=== PATIENT | male | born 1950 | race Caucasian/White ===

== ENCOUNTER 2025-01-04 12:27 | Outpatient (CLI) | payer MEDICARE, SELFPAY ==
--- OUTSIDE RECORDS SUMMARY | 2025-01-04 12:45 | XMS_ITS | Clinical Summary ---
Author Organization [facility] Address [address] [place] [address] Care Team Providers Care Slurry Blender Name Role Phone Unavailable Primary Care Provider Unavailabl e Source Comments [facility] [employer],non-owned Affiliates and Associated Physician Practices is amultiple site organization consisting of ambulatory clinics and hospital sitesin [place], [place], [place] and [place]. This disclosure is being madepursuant to the Care Everywhere program and may not contain all information available regarding this patient. Last updated 17.[facility] [employer] Social History Tobacco Use Types Packs/Day Years Used Date Smoking Tobacco: Never Assessed Sex and Gender Information Value Date Recorded Sex Assigned at Not on file Legal Sex Male 2:21 PM CDT Gender Identity Not on file Sexual Orientation Not on file Plan of Treatment Health Maintenance Due Date Last Done Comments MEDICARE AWV 12 MONTHS 1950 HEPATITIS C SCREENING 03/13/1966 DTAP/TDAP/TD VACCINES (1 - Tdap) 1967 PNEUMOCOCCAL VACCINE 50+ (1 of 1 - PCV) 1998 ZOSTER VACCINE (1 of 2) 1998 Respiratory Syncytial Virus (RSV) Vaccine Pt: or over 60 yrs (1 - 1-dose 75+ series) 2023 DEPRESSION SCREENING 04/07/2024 COVID-19 VACCINE (1 - 2023-2 5 season) 2024 INFLUENZA VACCINE (#1) 2024 HEPATITIS B VACCINE Aged Out No longe r eligible based on patient's age to complete this topic HIB VACCINE Aged Out No longer eligi ble based on patient's age to complete this topic HPV VACCINE Aged Out No longer eligi ble based on patient's age to complete this topic MENINGOCOCCAL (Group B) VACC INE SHARED DECISION-MAKING Aged Out No longer eligibl e based on patient's age to complete this topic MENINGOCOCCAL GROUPS A/C/Y/W VACCINE Aged Out No longer eligible b ased on patient's age to complete this topic [facility] [employer] DEPT [address] [place] [phone] MEDICARE
--- OUTSIDE RECORDS SUMMARY | 2025-01-04 12:45 | XMS_ITS | Encounter Summary ---
Author Organization [facility] Address [address] [place] [address] Care Team Providers Care Ship'S Officer Name Role Phone Unavailable Primary Care Provider Unavailabl e Encounter Details Date Type Department Care Team (Late st Contact Info) Description 09/29/2023 Lab Requisition [facility] - DermPath Lab [address] [place] [address] Nishant Villarreal MD [facility] DERMATOLOGY [address] [place] [phone] Neoplasm of uncertain behavior of skin Social History Tobacco Use Types Packs/Day Years Used Date Smoking Tobacco: Never Assessed Sex and Gender Information Value Date Recorded Sex Assigned at Not on file Legal Sex Male 2:21 PM CDT Gender Identity Not on file Sexual Orientation Not on file documented as of this encounter Plan of Treatment Not on file documented as of this encounter Procedures Procedure Name Priority Date/Time Associated Diagnosis Comments DERMATOPATHOLOGY Routine 09/29/2023 3:33 AM CDT Neoplasm of uncertain behavior of skin documented in this encounter Results * DERMATOPATHOLOGY (09/29/2023 3:33 AM CDT) Case Report Dermatopathology Report Case: [id number] Authorizing Provider: Nishant Villarreal MD Collected: 09/29/2023 03:33 AM Ordering Location: [facility] Physician [facility] - Received: 09/30/2023 01:07 PM DermPath Lab Pathologist: Holly Rubalcava MD Specimen: Skin, right superior buccal cheek 4 5:05 PM CDT DERMATOPATHOLOGY LABORATORY Final Diagnosis Specimen A. 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 The specimen consists of a shave biopsy measuring 9x7x2 mm. Jar 0. 4 5:05 PM CDT DERMATOPATHOLOGY LABORATORY Microscopic Description Specimen A. SKIN, right superior buccal cheek: There are prominent sebaceous gland lobules surrounding a dilated hair follicle. 4 5:05 PM CDT DERMATOPATHOLOGY LABORATORY Disclaimer An external and internal positive and negative controls are appropriate for the histochemical, immunohistochemical and immunofluorescence stain(s) in this case (if any), except where stated explicitly. The performance characteristics of the stain(s) cited in this report were developed and its performance characteristic determined by the Dermatopathology Laboratory at [facility], directed by Dr. Brunilda Latif. These tests need not be, and therefore are not, approved by the [place] Food and Drug Administration. The tests are used for clinical purposes. Billing Codes Specimen Charges Stain Charges 02434 1 4 5:05 PM CDT DERMATOPATHOLOGY LABORATORY Embedded Images 4 5:05 PM CDT DERMATOPATHOLOGY LABORATORY Pathology/Cytolo gy TISSUE SPECIMEN FROM SKIN / Unknown 09/29/2023 3:33 AM CDT 09/30/2023 1:07 PM CDT us Nishant Villarreal MD LAB - PATHOLOGY/CYTOLOGY BENITA TYLER Final Result DERMATOPATHOLOGY LABORATORY [facility] - Department of Dermatology [address], [address] [phone] documented in this encounter Visit Diagnoses Diagnosis Neoplasm of uncertain behavior of skin documented in this encounter
--- NOTE | 2025-01-04 12:46 | ECG_ITS ---
Test Date: 2025-01-04 12:52:52 Measurements Intervals Thornton Rate: 71 P: 49 WY: 121 QRS: 61 QRSD: 97 T: 50 QT: 372 QTc: 406 Interpretive Statements SINUS RHYTHM WARNING: DATA QUALITY MAY AFFECT INTERPRETATION No previous ECG available for comparison Electronically Signed On 01-04-2025 14:45:37 CDT by Sandy Adames M.D.
== END 2025-01-04 12:28 | disposition home or self-care (01) ==
LOC: ANHSURGERY 12:42
PROVIDERS: PCP Nurse Practitioner Family; Visit Provider Otolaryngology
DX: Z01.818 Encounter for other preprocedural examination (principal); I10 Essential (primary) hypertension
CPT/HCPCS: 93005

== ENCOUNTER 2025-01-10 01:08 | Day surgery (SDC) | payer MEDICARE, SELFPAY ==
--- NOTE | 2025-01-03 13:34 | PC.NURSE ---
[facility] has started construction of its new state of the art ER which will open Spring 2026. With this, we anticipate parking may be a challenge for some our surgical patients and families. Parking spaces are limited but are available for all Surgical, obstetrics, and ER patients sharing this lot. If you arrive and find you are having a hard time finding a parking space, please note that we understand the challenges, please drive around the hospital and park near Hospital Entrance 1. When you enter this entrance, you can ask a volunteer to direct or take you back to the surgical waiting area to check in. We appreciate everyone?s understanding of these expected challenges while we build for your future. Report to the Outpatient Waiting Room, entrance under the green pavilion located off [address], at time _6 AM on date __01/10/25 . Planned Procedure Time: __7:30 AM .? Time changes happen often and if your time is changed the preop area will call you the afternoon before. - You and your visitor will be asked to self-screen and do not enter if you have any COVID symptoms. Please call surgeon if you need to reschedule. - A mask is optional within the hospital at this time. Patients may have clear liquids (water, carbonated beverages, clear teas, apple juice) until 3 hours prior to surgery( 4:30 AM) with a maximum of 20 ounces. - No food from midnight until time of surgery and no smoking, or chewing tobacco (or any form of nicotine). No chewing gum, candy or mints. Take only the following medications with a SIP of water on the morning of surgery: AMLODIPINE, DO NOT STOP ANY OF YOUR OTHER PRESCRIPTION MEDICATIONS PRIOR TO SURGERY EXCEPT THE FOLLOWING Hold all vitamins and supplements for 3 days per anesthesiologist.LAST DOSE 01/06/25 Medications to discontinue per physician ASPIRIN__PER DR SNOW Please no make-up, nail panamanian, hairspray, perfume, deodorant, or body powder the day of surgery.? No jewelry (including any body piercings) or valuables the day of surgery, leave them at home.? Please take a shower or bath the night before, or the morning of, surgery with an antibacterial soap.? Wear comfortable, loose fitting clothing.? Children are encouraged to wear pajamas. - Jewelry must be removed prior to entering the operating room.? Rings and piercings that are not removed may be cut off. - The hospital will not accept responsibility for valuables.? - Please leave all valuables, including medications, at home the day of surgery. If you are going home after surgery, a licensed transport truck driver must drive you home.? - NO public transportation without another adult if you receive anesthesia. - We recommend that an adult stay with you for 24 hours following discharge. - We also recommend that you do not drive, make important decision, drink alcoholic beverages, or take any drugs that were not prescribed by your health care provider for at least 24 hours after your discharge time. For Pediatric surgeries, we recommend two adults accompany the child home. Follow any additional instructions given to you from your surgeon. Telephone instructions given to __PATIENT AND WIFE and asked if any additional questions and then verbalized understanding. Patient advised to call surgeon office or pre surgery nurse liaison [phone] if any additional questions.
[2025-01-03 15:08] VITALS: BMI 28.0
[2025-01-10] VITALS (7 sets, daily range): BP systolic 100–166; BP diastolic 69–96; PULSE 62–78; RESP 14–20; TEMP 36.1–36.6; O2SAT 96–99; BMI 28.8
--- OUTSIDE RECORDS SUMMARY | 2025-01-10 01:12 | XMS_ITS | Encounter Summary ---
Author Organization [facility] Address [address] [place] [address] Care Team Providers Care Patient Services Assistant Name Role Phone Unavailable Primary Care Provider Unavailabl e Encounter Details Date Type Department Care Team (Late st Contact Info) Description 09/29/2023 Lab Requisition [facility] - DermPath Lab [address] [facility] [place] [address] Nishant Villarreal MD [facility] DERMATOLOGY [address] [place] [phone] Neoplasm of uncertain behavior of skin [...] AM CDT) Case Report Dermatopathology Report Case: [id number] Authorizing Provider: Nishant Villarreal MD Collected: 09/29/2023 03:33 AM Ordering Location: [facility] Physician [facility] - Received: 09/30/2023 01:07 PM DermPath [...] characteristic determined by the Dermatopathology Laboratory at [facility], directed by Dr. Brunilda Latif. These tests need not be, and therefore are not, approved by the [place] Food and Drug Administration. The tests are used for clinical purposes. Billing Codes Specimen Charges Stain Charges 60055 1 4 5:05 PM CDT DERMATOPATHOLOGY LABORATORY Embedded Images 4 5:05 PM CDT DERMATOPATHOLOGY LABORATORY Pathology/Cytolo gy TISSUE SPECIMEN FROM SKIN / Unknown 09/29/2023 3:33 AM CDT 09/30/2023 1:07 PM CDT us Nishant Villarreal MD LAB - PATHOLOGY/CYTOLOGY BENITA TYLER Final Result DERMATOPATHOLOGY LABORATORY [facility] - Department of Dermatology [address] [phone] documented in this encounter Visit Diagnoses Diagnosis Neoplasm of uncertain behavior of skin documented in this encounter
[2025-01-10] MEDS: LACTATED RINGERS 1,000 ML 30 ML IV CONT (06:57)
--- NOTE | 2025-01-10 07:05 | WPDANESEPPF ---
Anes - Initial Pre Proc Eval Procedure: Operation Date: 01/10/25 07:30 Proposed Procedures p Direct Laryngoscopy with Biopsy - Michel Hoyt MD Date/Time: 01/10/25 07:05 Surgeon: Michel Hoyt MD Pre Op Diagnosis: polyp on tongue Patient Data Age: 74 Gender: M Height: 1.75 m Weight: 88.5 kg Last Vital Signs Temp 36.6 C 01/10/25 06:30 Pulse 69 01/10/25 06:30 Resp 14 01/10/25 06:30 BP 143/96 H 01/10/25 06:30 Pulse Ox 96 01/10/25 06:30 O2 Del Method Room Air 01/10/25 06:30 Allergies Allergy/AdvReac Type Severity Reaction Status Date / Time clarithromycin (From Biaxin) AdvReac Unknown Other Verified 01/10/25 06:50 Home Medications ?Medication ?Instructions ?Recorded ?Confirmed ?Type amlodipine 2.5 mg tablet 2.5 mg PO DAILY 01/03/25 01/10/25 History aspirin 81 mg capsule 81 mg PO HS 01/03/25 01/10/25 History atorvastatin 40 mg tablet 20 mg PO HS 01/03/25 01/03/25 History cholecalciferol (vitamin D3) 25 25 mcg PO DAILY 01/03/25 01/10/25 History mcg (1,000 unit) tablet finasteride 5 mg tablet 5 mg PO DAILY 01/03/25 01/03/25 History multivitamin (Daily Multi-Vitamin 1 tablet PO DAILY 01/03/25 01/10/25 History tablet) Patient hx anesthesia problems: none Family hx anesthesia problems: none Results Review: All pre-operative results and documents have been reviewed as part of the pre-operative evaluation. [facility] Social History Social History Smoking packs per day: 1.5 Smoking cigarettes per day: 30.0 Years smoked: 55 Smoking pack-years: 82.50 Smoking status: Current every day smoker Tobacco type: cigarettes Living arrangements: with family Spiritual care concerns: No Anes - Eval Final PreProcedure Day of Procedure 01/10/25 07:05 Patient weight: overweight Heart: regular rate and rhythm Lungs: decreased breath sounds Airway: Mallampati scale class II Neurological: alert and oriented Last oral intake: >/= 8 hours ASA classification: III Emergent: no Anesthetic plan: proceed Anesthesia type and monitoring: general ETT and standard monitoring Results Review: All pre-operative results and documents have been reviewed as part of the pre-operative evaluation. Informed Consent: The patient's anesthetic plan and its attendant risks and benefits were discussed with the patient/family/POA. Questions were solicited and answers provided to the satisfaction of the patient/family/POA.
--- NOTE | 2025-01-10 07:16 | PM.IMHP ---
H&P: HPI History of Present Illness Date/Time: 01/10/25 07:16 Chief Complaint: tongue base neoplasm Review of Systems Review of Systems: All systems reviewed & are unremarkable except as noted in HPI and below PMFSH Social History Social History Smoking packs per day: 1.5 Smoking cigarettes per day: 30.0 Years smoked: 55 Smoking pack-years: 82.50 Smoking status: Current every day smoker Tobacco type: cigarettes Living arrangements: with family Spiritual care concerns: No Meds Home Medications and Allergies Home Medications ?Medication ?Instructions ?Recorded ?Confirmed ?Type amlodipine 2.5 mg tablet 2.5 mg PO DAILY 01/03/25 01/10/25 History aspirin 81 mg capsule 81 mg PO HS 01/03/25 01/10/25 History atorvastatin 40 mg tablet 20 mg PO HS 01/03/25 01/03/25 History cholecalciferol (vitamin D3) 25 25 mcg PO DAILY 01/03/25 01/10/25 History mcg (1,000 unit) tablet finasteride 5 mg tablet 5 mg PO DAILY 01/03/25 01/03/25 History multivitamin (Daily Multi-Vitamin 1 tablet PO DAILY 01/03/25 01/10/25 History tablet) Allergies Allergy/AdvReac Type Severity Reaction Status Date / Time clarithromycin (From Biaxin) AdvReac Unknown Other Verified 01/10/25 06:50 Vital Signs Vital Signs - 24 hr 01/10/25 06:30 Temperature 36.6 C Pulse Rate 69 Respiratory Rate 14 Blood Pressure 143/96 H Pulse Oximetry 96 Oxygen Delivery Room Air Exam Narrative: left posterior tongue base mass, airway still patent, rest of exam unremarkable Assessment and Plan Assessment and plan (1) 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 r/b/a reviewed, all questions answered and he agrees to proceed. Refer to outpt H&P for additional detail.
--- NOTE | 2025-01-10 07:18 | WPDHPUPDATE1 ---
History and Physical Update Update Date/Time: 01/10/25 07:18 History and Physical has been reviewed, including an updated exam of the patient. There are NO changes in the patient's condition. Risks, benefits, and alternatives have been discussed and questions answered. Patient agrees to proceed with procedure.
--- NOTE | 2025-01-10 07:45 | S_PTH ---
PATIENT: Jarrett Collins LOC: [facility] U#:[id number] AGE/SX: 74/M ROOM: RE01/10/[address]: Michel Hoyt MD : 1950 BED: DIS: 01/10/2025 SPEC #: [id number] RECD: 01/10/25 11:00 STATUS: RUDI REQ #: [id number] SOFIA: 01/10/25 07:[address]: Michel Hoyt DEPT: [facility] Surgical RECD BY: Raquel Huddleston ENTERED: 01/10/25 11:00 SP TYPE: Surgical OTHR DR: Ayesha Nino, C[employer] Tissues: A - Cyst Procedures: Hematoxylin and Eosin Stain Gross and Microscopic Level 4
--- NOTE | 2025-01-10 07:50 | P.OP_ITS ---
Procedure Note - Detailed Date of Procedure 01/10/25 Pre-op Diagnosis tongue base cyst Post-op Diagnosis Same Procedure Performed direct laryngoscopy with biopsy Surgeon Michel Hoyt MD Anesthesia General Indications tongue base cyst Findings cyst left tongue base and lateral pharyngeal wall Description of Procedure On the date of surgery, the patient was identified in the preoperative holding area. All questions answered, consent signed and verified and they agreed to proceed. They were then brought to the OR and placed under general endotracheal anesthesia with a 6.5 sized endotracheal tube. A shoulder roll was placed. Timeout was performed verifying the correct patient identity and procedure to be performed which they were. The patient was then draped in standard fashion for direct laryngoscopy with biopsy. The bed was rotated 90 degrees counter-clockwise and a dental guard was placed to protect the upper teeth. A laryngoscope was then advanced in the oral cavity and upper airway to visualize all subsites of the oral cavity, oropharynx, hypopharynx and larynx. The only lesions noted were on the larynx. The patient was then suspended from the [place] stand. Under endoscopic visuali zation, the tongue base and lateral pharyngeal wall cyst was noted, no other lesions seen. Using biopsy forceps, this was removed with minimal damage to the healthy mucosa. Minimal bleeding occurred and did not require significant intervention for hemostasis. With all specimen removed, the procedure was concluded. The laryngoscope was removed, the dental guard removed, and the oral cavity was examined showing no injury to lips, gums, teeth or tongue. Care of the patient was returned to anesthesia who extubated the patient and transferred to the PACU for recovery in stable condition without complication. Estimated Blood Loss 2 Drains No Packing No Pathology Yes (left tongue base cyst) Complications No immediate complications Condition Stable Disposition PACU
== END 2025-01-10 09:24 | disposition home or self-care (01) ==
PROVIDERS: PCP Nurse Practitioner Family; Visit Provider Otolaryngology
PROC: 0CJS8ZZ Inspection of Larynx, Via Natural or Artificial Opening Endoscopic (ICD-10-PCS; CPT 31535; principal; 2025-01-10 07:30)
DX: K14.8 Other diseases of tongue (principal); F17.210 Nicotine dependence, cigarettes, uncomplicated
CPT/HCPCS: 31535; 88305; A9270; J0330; J2003; J2704; J3010; J7120